=== PATIENT | male | born 1990 | race American Indian/Alaskan Native ===

== ENCOUNTER 2017-02-21 01:31 | Emergency (ER) | payer SELFPAY ==
[2017-02-21] MEDS ORDERED: TORADOL IM ONE (03:42)
--- NOTE | 2017-02-21 03:47 | Emergency Department Report ---
- General Chief Complaint: Upper Respiratory Infection Stated Complaint: FLU SX/BODYACHES Time Seen by Provider: 02/21/17 03:26 Source: patient Mode of arrival: Ambulatory Limitations: No Limitations - History of Present Illness Initial Comments: Pt presents to ED with a 4 day h/o cough, rhinorrhea, nasa congestion. Cough is productive of greenish sputum, associated chest pain with coughing. Pt has sore throat, , nausea, no vomitng, rigors and chills. Hx of sick contact, daughter had similar illness. No diarrhea, no rashes MD Complaint: fever, cough, sore throat, rhinorrhea, nasal congestion -: Gradual, days(s) (4, progressively getting worse) Severity: moderate Severity scale (0 -10): 6 Quality: aching Consistency: constant Improves With: nothing Worsens With: nothing Context: sick contacts (daughter had similar illness) Associated Symptoms: fever, chills, myalgias, headache, rhinorrhea, nasal congestion, cough, chest pain (with coughing), shortness of breath, nausea. denies: vomiting, diarrhea, dysuria, rash, confusion, right sweats, weight loss , epistaxis, hoarseness, ear pain Treatments Prior to Arrival: none - Related Data Previous Rx's Medication Instructions Recorded Last Taken Type Ibuprofen [Motrin] 800 mg PO Q8H PRN #30 tablet 09/22/14 Unknown Rx Acetaminophen/Codeine [Tylenol 1 tab PO Q4-6H PRN #016 tab 11/05/15 Unknown Rx /Codeine # 3 tab] Ibuprofen [Motrin] 600 mg PO Q8H PRN #40 tablet 11/05/15 Unknown Rx Sulfamethoxazole/Trimethoprim 1 each PO Q12H #20 tablet 11/05/15 Unknown Rx [Bactrim DS TAB] Acetaminophen 122 mg PO Q6H PRN #1 bottle 02/21/17 Unknown Rx Ibuprofen Oral Liqd [Motrin] 80 mg PO Q6H PRN #1 bottle 02/21/17 Unknown Rx Allergies Allergy/AdvReac Type Severity Reaction Status Date / Time No Known Allergies Allergy Unverified 09/22/14 19:27 ED Review of Systems ROS: Stated complaint: FLU SX/BODYACHES Other details as noted in HPI Comment: All other systems reviewed and negative Constitutional: chills, fever, malaise, weakness. denies: diaphoresis Eyes: denies: eye pain, eye discharge, vision change ENT: ear pain, throat pain, congestion. denies: dental pain, hearing loss Respiratory: cough, shortness of breath. denies: SOB with exertion, SOB at rest , wheezing Cardiovascular: chest pain (with coughing). denies: dyspnea on exertion, edema , syncope, paroxysmal nocturnal dyspnea Endocrine: no symptoms reported Gastrointestinal: nausea. denies: abdominal pain, vomiting, diarrhea, constipation, hematemesis Genitourinary: denies: dysuria, frequency, hematuria, discharge Musculoskeletal: myalgia Skin: denies: rash, lesions, change in color, change in hair/nails Neurological: headache, weakness. denies: numbness, paresthesias, confusion, abnormal gait ED Past Medical Hx - Past Medical History Previous Medical History?: No - Surgical History Past Surgical History?: No - Social History Smoking Status: Never Smoker - Medications Home Medications: Home Medications Medication Instructions Recorded Confirmed Last Taken Type Ibuprofen [Motrin] 800 mg PO Q8H PRN #30 tablet 09/22/14 Unknown Rx Acetaminophen/Codeine [Tylenol 1 tab PO Q4-6H PRN #016 tab 11/05/15 Unknown Rx /Codeine # 3 tab] Ibuprofen [Motrin] 600 mg PO Q8H PRN #40 tablet 11/05/15 Unknown Rx Sulfamethoxazole/Trimethoprim 1 each PO Q12H #20 tablet 11/05/15 Unknown Rx [Bactrim DS TAB] Acetaminophen 122 mg PO Q6H PRN #1 bottle 02/21/17 Unknown Rx Ibuprofen Oral Liqd [Motrin] 80 mg PO Q6H PRN #1 bottle 02/21/17 Unknown Rx ED Physical Exam - General Limitations: No Limitations General appearance: alert, in distress (mild to moderate distress) - Head Head exam: Present: atraumatic, normocephalic, normal inspection - Eye Eye exam: Present: normal appearance, PERRL, EOMI. Absent: scleral icterus, conjunctival injection, nystagmus - ENT ENT exam: Present: normal exam, mucous membranes moist, other (erythematous pharynx, some swelling) - Neck Neck exam: Present: normal inspection, full ROM, lymphadenopathy. Absent: tenderness, meningismus - Respiratory Respiratory exam: Present: normal lung sounds bilaterally, chest wall tenderness , decreased breath sounds, prolonged expiratory (sligh and bilaterally). Absent : respiratory distress, wheezes, rales, rhonchi - Cardiovascular Cardiovascular Exam: Present: regular rate, normal rhythm. Absent: bradycardia , tachycardia, normal heart sounds, systolic murmur - GI/Abdominal GI/Abdominal exam: Present: soft, normal bowel sounds. Absent: distended, tenderness, guarding, rebound, hyperactive bowel sounds, hypoactive bowel sounds , organomegaly, mass - Rectal Rectal exam: Present: deferred - Extremities Exam Extremities exam: Present: normal inspection, full ROM, normal capillary refill. Absent: tenderness, pedal edema, joint swelling - Back Exam Back exam: Present: normal inspection, full ROM. Absent: CVA tenderness (L) - Neurological Exam Neurological exam: Present: alert, oriented X3, CN II-XII intact, normal gait ED Course Vital Signs 02/21/17 02:08 Temperature 98.2 F Pulse Rate 69 Respiratory 16 Rate Blood Pressure 133/75 O2 Sat by Pulse 100 Oximetry ED Medical Decision Making - Radiology Data Radiology results: image reviewed interpreted by me: Negative study Critical Care Time: No Critical care attestation.: If time is entered above; I have spent that time in minutes in the direct care of this critically ill patient, excluding procedure time. ED Disposition Clinical Impression: Upper respiratory tract infection, Viral upper respiratory illness, Otalgia of right ear Disposition: DC-01 TO HOME OR SELFCARE Is pt being admited?: No Does the pt Need Aspirin: No Condition: Stable Instructions: Upper Respiratory Infection in Children (ED), Earache (ED) Additional Instructions: Do gentle saline nasal suctioning with bulb syringe as needed prior to feeds Do not do this immediately after feeding, this may trigger emesis. Prescriptions: Acetaminophen 122 mg PO Q6H PRN #1 bottle PRN Reason: Fever Ibuprofen Oral Liqd [Motrin] 80 mg PO Q6H PRN #1 bottle PRN Reason: Fever Referrals: PRIMARY CARE,MD [Primary Care Provider] - 3-5 Days (Follow up with your PCP in 2 -3 days. Return back to ED if problem gets worse) Time of Disposition: 04:28
[2017-02-21 05:28] VITALS: BP 116/69
--- NOTE | 2017-02-21 09:27 | XRay Report ---
AP CHEST: HISTORY: Productive cough, chest pain AP view of the chest demonstrates a normal mediastinal and cardiac contour with clear lungs and normal bony and soft tissue structures. IMPRESSION: Unremarkable AP chest.
== END 2017-02-21 05:29 | disposition home or self-care (01) ==
LOC: ED 01:31
DX: J06.9 Acute upper respiratory infection, unspecified (principal)
CPT/HCPCS: 71010; 87400; 96372; 99283; J1885

== ENCOUNTER 2017-07-09 12:20 | Emergency (ER) | payer SELFPAY ==
[2017-07-09 13:47] VITALS: BP 108/57
--- NOTE | 2017-07-09 14:36 | Emergency Department Report ---
Blank Doc - Documentation Documentation: Patient is a 26-year-old male who reached behind him to close a door 2 days ago and felt a popping sensation in his right shoulder. X-ray was performed
[2017-07-09] MEDS ORDERED: MOTRIN PO ONE (14:37)
[2017-07-09] MEDS ORDERED: ULTRAM PO ONE (14:37)
--- NOTE | 2017-07-09 15:35 | XRay Report ---
RIGHT SHOULDER, 3 VIEWS: HISTORY: right shoulder pain. Normal bone mineralization. No acute osseous injury or joint pathology is detected. The soft tissues are unremarkable. IMPRESSION: Right shoulder within normal limits.
--- NOTE | 2017-07-09 16:24 | Emergency Department Report ---
HPI - General Chief Complaint: Extremity Injury, Upper Time Seen by Provider: 07/09/17 14:27 - HPI HPI: Patient is a 26-year-old male with no prior medical history who presents to ED cc of right shoulder injury x 2 days ago. Pt states he was closing a door when he outstretched his arm and heard a pop. He states pain localized to shoulder region with no radiation, he states pain with movement. He denies any trauma or injury to self and denies any other problems ED Past Medical Hx - Past Medical History Previous Medical History?: No - Surgical History Past Surgical History?: No - Social History Smoking Status: Former Smoker Substance Use Type: None - Medications Home Medications: Home Medications Medication Instructions Recorded Confirmed Last Taken Type Ibuprofen [Motrin] 800 mg PO Q8H PRN #30 tablet 09/22/14 Unknown Rx Acetaminophen/Codeine [Tylenol 1 tab PO Q4-6H PRN #016 tab 11/05/15 Unknown Rx /Codeine # 3 tab] Ibuprofen [Motrin] 600 mg PO Q8H PRN #40 tablet 11/05/15 Unknown Rx Sulfamethoxazole/Trimethoprim 1 each PO Q12H #20 tablet 11/05/15 Unknown Rx [Bactrim DS TAB] Ondansetron [Zofran Odt] 4 mg PO Q8H PRN #20 tab.rapdis 02/21/17 Unknown Rx Cyclobenzaprine [Flexeril] 10 mg PO QHS PRN #20 tablet 07/09/17 Unknown Rx Ibuprofen [Motrin 800 MG tab] 800 mg PO Q6H PRN #30 tablet 07/09/17 Unknown Rx ED Review of Systems ROS: Stated complaint: SHOULDER INJURY Other details as noted in HPI Constitutional: denies: chills, fever Eyes: denies: eye pain, eye discharge, vision change ENT: denies: ear pain, throat pain Respiratory: denies: cough, shortness of breath, wheezing Cardiovascular: denies: chest pain, palpitations Endocrine: no symptoms reported Gastrointestinal: denies: abdominal pain, nausea, diarrhea Genitourinary: denies: urgency, dysuria Musculoskeletal: myalgia. denies: back pain, joint swelling, arthralgia Skin: denies: rash, lesions Neurological: denies: headache, weakness, paresthesias Psychiatric: denies: anxiety, depression Hematological/Lymphatic: denies: easy bleeding, easy bruising Physical Exam - Physical Exam Vital Signs: Vital Signs 07/09/17 13:44 Temperature 98.3 F Pulse Rate 64 Respiratory 18 Rate Blood Pressure 108/57 O2 Sat by Pulse 99 Oximetry Physical Exam: GENERAL: Alert and oriented x3, no apparent distress, Normal Gait, atraumatic. HEAD: Head is normocephalic and a-traumatic. NECK: Supple. Non edematous, No lymphadenopathy or thyromegaly. No C-spine tenderness LUNGS: Symetrical with respiration, No wheezing, no rales or crackles, CTAB. HEART: S1, S2 present, regular rate and rhythm without murmur. BACK: Full range of motion, no spinal tenderness, nontender to palpation. EXTREMITIES/MUSCULOSKELETAL: No cyanosis, clubbing, rash, lesions or edema seen on all upper joints bilaterally. Full ROM bilaterally. UE Pulses 2+ bilaterally. UE 5+ strength bilaterally, showed a back pain with active elevation, no deformities seen NEUROLOGIC: The patient is cooperative with no focal neurologic deficits. Normal speech. Normal sensation in bilateral upper and lower extremities, No loss of sensation, SKIN: Warm and dry, No lesions, No ulceration or induration present. ED Course Vital Signs 07/09/17 13:44 Temperature 98.3 F Pulse Rate 64 Respiratory 18 Rate Blood Pressure 108/57 O2 Sat by Pulse 99 Oximetry ED Medical Decision Making - Radiology Data Radiology results: report reviewed, image reviewed Ordering Physician: YOSI GILL MD Date of Service: 07/09/17 Procedure(s): XR shoulder 2+V RT Accession Number(s): [id number] cc: YOSI GILL MD Fluoro Time In Minutes: RIGHT SHOULDER, 3 VIEWS: HISTORY: right shoulder pain. Normal bone mineralization. No acute osseous injury or joint pathology is detected. The soft tissues are unremarkable. IMPRESSION: Right shoulder within normal limits. Transcribed By: TTR Dictated By: KOKI SCHAEFFER JR, MD Electronically Authenticated By: KOKI SCHAEFFER JR, MD Signed Date/Time: 07/09/17 1528 - Medical Decision Making Plan 6-year-old male presents with shoulder strain. ED course: X-rays of the shoulder taken X-ray shows no acute fracture or dislocation I discussed this with the patient. Patient was put in the sling and sent home with pain medication. Vital signs are normal patient is in no acute distress Discussed with patient follow-up with primary care physician. Discussed the patient and take medications as prescribed. Patient has no neurological deficit. Patient is alert and oriented 3 and understands all instructions given. Discussed drowsiness effect of Flexeril makes her drowsy and not to operate machinery while taking flexeril Critical care attestation.: If time is entered above; I have spent that time in minutes in the direct care of this critically ill patient, excluding procedure time. ED Disposition Clinical Impression: Right shoulder strain Qualifiers: Encounter type: initial encounter Qualified Code(s): S46.911A - Strain of unspecified muscle, fascia and tendon at shoulder and upper arm level, right arm , initial encounter Muscle strain of shoulder region Qualifiers: Encounter type: initial encounter Laterality: right Qualified Code(s): S46.911A - Strain of unspecified muscle, fascia and tendon at shoulder and upper arm level, right arm, initial encounter Disposition: TO HOME OR SELFCARE Is pt being admited?: No Does the pt Need Aspirin: No Condition: Stable Instructions: Muscle Strain (ED), Shoulder Sprain (ED), Arthralgia (ED), RICE Therapy (ED) Additional Instructions: Make sure to follow up with the primary care physician as discussed. Take all your medications as you've been prescribed. If you have any worsening symptoms or develop new symptoms please return to ED immediately. Prescriptions: Cyclobenzaprine [Flexeril] 10 mg PO QHS PRN #20 tablet PRN Reason: Muscle Spasm Ibuprofen [Motrin 800 MG tab] 800 mg PO Q6H PRN #30 tablet PRN Reason: Fever Referrals: PRIMARY CAREMD [Primary Care Provider] - 3-5 Days CLIFFORD WILCOX MD [Staff Physician] - 3-5 Days [facility] [Outside] - 3-5 Days [facility] [Outside] - 3-5 Days Forms: Work/School Release Form(ED) Time of Disposition: 16:23
== END 2017-07-09 16:40 | disposition home or self-care (01) ==
LOC: ED 12:20
DX: S46.911A Strain of unspecified muscle, fascia and tendon at shoulder and upper arm level, right arm, initial encounter (principal); Z87.891 Personal history of nicotine dependence; W23.0XXA Caught, crushed, jammed, or pinched between moving objects, initial encounter; Y93.89 Activity, other specified; Y92.89 Other specified places as the place of occurrence of the external cause; Y99.8 Other external cause status
CPT/HCPCS: 99283

== ENCOUNTER 2017-10-02 16:46 | Emergency (ER) | payer SELFPAY ==
[2017-10-02 17:33] VITALS: BP 117/67
[2017-10-02] MEDS ORDERED: DECADRON IM ONE (18:22)
--- NOTE | 2017-10-02 18:35 | Emergency Department Report ---
ED ENT HPI - General Chief complaint: Sore Throat Stated complaint: SORE THROAT Time Seen by Provider: 10/02/17 18:21 Source: patient Mode of arrival: Ambulatory Limitations: No Limitations - History of Present Illness Initial comments: Patient is a 26-year-old -German male who states that the past 2-3 days he's had increased pain in the right jaw. Patient states is having a hard time opening his mouth. Patient states he doesn't feel as though he's had a bad tooth in this area. Patient states he has a hard time eating because he can 't chew. Patient has no fevers chills nausea vomiting diarrhea at this time. - Related Data Previous Rx's Medication Instructions Recorded Last Taken Type Ibuprofen [Motrin] 800 mg PO Q8H PRN #30 tablet 09/22/14 Unknown Rx Acetaminophen/Codeine [Tylenol 1 tab PO Q4-6H PRN #016 tab 11/05/15 Unknown Rx /Codeine # 3 tab] Ibuprofen [Motrin] 600 mg PO Q8H PRN #40 tablet 11/05/15 Unknown Rx Sulfamethoxazole/Trimethoprim 1 each PO Q12H #20 tablet 11/05/15 Unknown Rx [Bactrim DS TAB] Ondansetron [Zofran Odt] 4 mg PO Q8H PRN #20 tab.rapdis 02/21/17 Unknown Rx Cyclobenzaprine [Flexeril] 10 mg PO QHS PRN #20 tablet 07/09/17 Unknown Rx Ibuprofen [Motrin 800 MG tab] 800 mg PO Q6H PRN #30 tablet 07/09/17 Unknown Rx Clindamycin [Clindamycin CAP] 300 mg PO Q8H 7 Days cap 10/02/17 Unknown Rx HYDROcodone/APAP 5-325 [[place] 1 each PO Q6HR PRN #15 tablet 10/02/17 Unknown Rx 5/325] predniSONE [Deltasone] 20 mg PO QDAY #5 tab 10/02/17 Unknown Rx Allergies Allergy/AdvReac Type Severity Reaction Status Date / Time No Known Allergies Allergy Verified 10/02/17 17:29 ED Dental HPI - General Chief complaint: Sore Throat Stated complaint: SORE THROAT Time Seen by Provider: 10/02/17 18:21 Source: patient Mode of arrival: Ambulatory Limitations: No Limitations - Related Data Previous Rx's Medication Instructions Recorded Last Taken Type Ibuprofen [Motrin] 800 mg PO Q8H PRN #30 tablet 09/22/14 Unknown Rx Acetaminophen/Codeine [Tylenol 1 tab PO Q4-6H PRN #016 tab 11/05/15 Unknown Rx /Codeine # 3 tab] Ibuprofen [Motrin] 600 mg PO Q8H PRN #40 tablet 11/05/15 Unknown Rx Sulfamethoxazole/Trimethoprim 1 each PO Q12H #20 tablet 11/05/15 Unknown Rx [Bactrim DS TAB] Ondansetron [Zofran Odt] 4 mg PO Q8H PRN #20 tab.rapdis 02/21/17 Unknown Rx Cyclobenzaprine [Flexeril] 10 mg PO QHS PRN #20 tablet 07/09/17 Unknown Rx Ibuprofen [Motrin 800 MG tab] 800 mg PO Q6H PRN #30 tablet 07/09/17 Unknown Rx Clindamycin [Clindamycin CAP] 300 mg PO Q8H 7 Days cap 10/02/17 Unknown Rx HYDROcodone/APAP 5-325 [[place] 1 each PO Q6HR PRN #15 tablet 10/02/17 Unknown Rx 5/325] predniSONE [Deltasone] 20 mg PO QDAY #5 tab 10/02/17 Unknown Rx Allergies Allergy/AdvReac Type Severity Reaction Status Date / Time No Known Allergies Allergy Verified 10/02/17 17:29 ED Review of Systems ROS: Stated complaint: SORE THROAT Other details as noted in HPI Comment: All other systems reviewed and negative ED Past Medical Hx - Past Medical History Previous Medical History?: No - Surgical History Past Surgical History?: No - Social History Smoking Status: Never Smoker Substance Use Type: None - Medications Home Medications: Home Medications Medication Instructions Recorded Confirmed Last Taken Type Ibuprofen [Motrin] 800 mg PO Q8H PRN #30 tablet 09/22/14 Unknown Rx Acetaminophen/Codeine [Tylenol 1 tab PO Q4-6H PRN #016 tab 11/05/15 Unknown Rx /Codeine # 3 tab] Ibuprofen [Motrin] 600 mg PO Q8H PRN #40 tablet 11/05/15 Unknown Rx Sulfamethoxazole/Trimethoprim 1 each PO Q12H #20 tablet 11/05/15 Unknown Rx [Bactrim DS TAB] Ondansetron [Zofran Odt] 4 mg PO Q8H PRN #20 tab.rapdis 02/21/17 Unknown Rx Cyclobenzaprine [Flexeril] 10 mg PO QHS PRN #20 tablet 07/09/17 Unknown Rx Ibuprofen [Motrin 800 MG tab] 800 mg PO Q6H PRN #30 tablet 07/09/17 Unknown Rx Clindamycin [Clindamycin CAP] 300 mg PO Q8H 7 Days cap 10/02/17 Unknown Rx HYDROcodone/APAP 5-325 [[place] 1 each PO Q6HR PRN #15 tablet 10/02/17 Unknown Rx 5/325] predniSONE [Deltasone] 20 mg PO QDAY #5 tab 10/02/17 Unknown Rx ED Physical Exam - General Limitations: No Limitations General appearance: alert, in no apparent distress - Head Head exam: Present: atraumatic, normocephalic - Eye Eye exam: Present: normal appearance - ENT ENT exam: Present: mucous membranes moist, other (just anterior to the angle of the right jaw in the submandibular area there is a approximately 1-1/2 cm mass like lesion beneath the skin. Skin is not erythematous nor fluctuant. This area is firm. Patient's oropharynx is clear.) - Neck Neck exam: Present: normal inspection - Respiratory Respiratory exam: Present: normal lung sounds bilaterally. Absent: respiratory distress - Cardiovascular Cardiovascular Exam: Present: regular rate, normal rhythm. Absent: systolic murmur, diastolic murmur, rubs, gallop - GI/Abdominal GI/Abdominal exam: Present: soft, normal bowel sounds - Rectal Rectal exam: Present: deferred - Extremities Exam Extremities exam: Present: normal inspection - Back Exam Back exam: Present: normal inspection - Neurological Exam Neurological exam: Present: alert, oriented X3 - Psychiatric Psychiatric exam: Present: normal affect, normal mood - Skin Skin exam: Present: warm, dry, intact, normal color. Absent: rash ED Course Vital Signs 10/02/17 17:29 Temperature 98.6 F Pulse Rate 59 L Respiratory 16 Rate Blood Pressure 117/67 O2 Sat by Pulse 98 Oximetry ED Medical Decision Making - Medical Decision Making Patient most likely has a lymph node or salivary gland infection in this area. Patient will be started on Decadron here and will be discharged home with clindamycin and pain meds Critical care attestation.: If time is entered above; I have spent that time in minutes in the direct care of this critically ill patient, excluding procedure time. ED Disposition Clinical Impression: Sialadenitis Disposition: DC-01 TO HOME OR SELFCARE Is pt being admited?: No Does the pt Need Aspirin: No Condition: Stable Instructions: Sialoadenitis (ED) Referrals: PARISH CHAVEZ MD [Staff Physician] - 3-5 Days
[2017-10-02] MEDS ORDERED: CLEOCIN IM ONE (18:37)
[2017-10-02] MEDS ORDERED: TORADOL ONE (18:47)
[2017-10-02] MEDS ORDERED: TORADOL IM ONE (18:51)
== END 2017-10-02 18:57 | disposition home or self-care (01) ==
LOC: ED 16:46
DX: K11.20 Sialoadenitis, unspecified (principal); Z79.899 Other long term (current) drug therapy
CPT/HCPCS: 96372; 99282; J1100; J1885

== ENCOUNTER 2019-04-16 20:02 | Emergency (ER) | payer SELFPAY ==
[2019-04-16 20:20] VITALS: BP 126/61
--- NOTE | 2019-04-16 22:07 | Event Note ---
ED Screening Note Date of service: 04/16/19 Time: 22:05 ED Screening Note: 28 y o male presents to ed cc of left lower leg pain and numbness also cc of pain with urination, denies penile d/c This initial assessment/diagnostic orders/clinical plan/treatment(s) is/are subject to change based on patients health status, clinical progression and re- assessment by fellow clinical providers in the ED. Further treatment and workup at subsequent clinical providers discretion. Patient/guardian urged not to elope from the ED as their condition may be serious if not clinically assessed and managed. Initial orders include: ua
[2019-04-16 23:03] LABS: Bilirubin,Urine NEG (Negative); Blood,Urine NEG (Negative); Color,Urine Yellow (Yellow); Mucus,Urine FEW /HPF; Protein,Urine <15 mg/dL mg/dL (Negative)
--- NOTE | 2019-04-17 01:57 | Emergency Department Report ---
Chief Complaint: Urogenital-Male Stated Complaint: LT LEG PAIN AND POSS BLADDER INFECTION Time Seen by Provider: 04/17/19 00:32 - Exam Vital Signs: Vital Signs 04/16/19 20:19 Temperature 98.4 F Pulse Rate 68 Respiratory 18 Rate Blood Pressure 126/61 O2 Sat by Pulse 98 Oximetry MSE screening note: Focused history and physical exam performed. Due to findings the following was ordered: Patient discussed with doctor:: WILDA GILL ED Medical Decision Making - Lab Data Lab Results 04/16/19 Range/Units 22:46 Urine Color Yellow (Yellow) Urine Turbidity Clear (Clear) Urine pH 7.0 (5.0-7.0) Ur Specific [place] 1.027 (1.003-1.030) Urine Protein <15 mg/dl (Negative) mg/dL Urine Glucose (UA) Neg (Negative) mg/dL Urine Ketones Neg (Negative) mg/dL Urine Blood Neg (Negative) Urine Nitrite Neg (Negative) Urine Bilirubin Neg (Negative) Urine Urobilinogen 2.0 (<2.0) mg/dL Ur Leukocyte Esterase Neg (Negative) Urine WBC (Auto) 1.0 (0.0-6.0) /HPF Urine RBC (Auto) 4.0 (0.0-6.0) /HPF U Epithel Cells (Auto) < 1.0 (0-13.0) /HPF Urine Mucus Few /HPF ED Disposition for MSE Clinical Impression: Dysuria, Numbness in left leg Disposition: Z-07 MED SCREENING EXAM-LEFT Condition: Stable Referrals: PRIMARY CARE, [Primary Care Provider] - 3-5 Days
== END 2019-04-17 01:35 | disposition left against medical advice (07) ==
LOC: ED 20:02
DX: R20.0 Anesthesia of skin (principal); M79.662 Pain in left lower leg; R30.0 Dysuria
CPT/HCPCS: 81001